=== PATIENT | male | born 1950 | race Caucasian/White ===

== ENCOUNTER 2017-02-17 14:12 | Emergency (ER) | payer MEDICARE, BC ==
[2017-02-17 16:05] VITALS: BP 134/69
--- NOTE | 2017-02-17 16:05 | UC ---
Back Pain HPI - HPI Summary HPI Summary: 66 year old male presents with left sided back pain from falling off a 6 foot ladder. He has a large left sided hematoma and I will send him to the ER. - History of Current Complaint Chief Complaint: UCTrauma Stated Complaint: BACK INJURY Time Seen by Provider: 02/17/17 16:05 - Allergies/Home Medications Allergies/Adverse Reactions: Allergies Allergy/AdvReac Type Severity Reaction Status Date / Time No Known Allergies Allergy Verified 02/17/17 16:05 Home Medications: Home Medications NK [No Home Medications Reported] 02/17/17 [History Confirmed 02/17/17] PMH/Surg Hx/FS Hx/Imm Hx Previously Healthy: Yes - Surgical History Surgical History: Yes Surgery Procedure, Year, and Place: 02/21/13 - Carpel Tunnel surgery in [place] - LEFT hand. Dr. Crockett. Will be f/u on Friday - post operative visit - Social History Alcohol Use: Occasionally Substance Use Type: None Smoking Status (MU): Never Smoked Tobacco - Immunization History Most Recent Tetanus Shot: 04/22/13 Review of Systems Constitutional: Negative Skin: Negative Eyes: Negative ENT: Negative Respiratory: Negative Cardiovascular: Negative Gastrointestinal: Negative Genitourinary: Negative Motor: Negative Neurovascular: Negative Musculoskeletal: Other: - LEFT LOWER BACK HEMATOMA SECONDARY TO FALL Neurological: Negative Psychological: Negative All Other Systems Reviewed And Are Negative: Yes Physical Exam Triage Information Reviewed: Yes Vital Signs: Initial Vital Signs Temp 37.1 C 02/17/17 16:00 Pulse 94 02/17/17 16:00 Resp 18 02/17/17 16:00 BP 134/69 02/17/17 16:00 Pulse Ox 97 02/17/17 16:00 Eye Exam: Normal ENT Exam: Normal Dental Exam: Normal Neck exam: Normal Neck: Positive: 1 Respiratory Exam: Normal Cardiovascular Exam: Normal Abdominal Exam: Normal Musculoskeletal Exam: Normal Musculoskeletal: Positive: Strength Limited @, ROM Limited @, Other: - LEFT LOWER BACK HEMATOMA SECONDARY TO FALL Neurological Exam: Normal Psychological Exam: Normal Skin Exam: Normal Back Pain Course/Dx - Differential Dx/Diagnosis Provider Diagnoses: LEFT LOWER BACK HEMATOMA SECONDARY TO A FALL Discharge - Discharge Plan Condition: Stable Disposition: HOME Patient Education Materials: Low Back Strain (ED), Acute Low Back Pain (ED) Referrals: Bennie Siddiqui MD [Primary Care Provider] - If Needed
== END 2017-02-17 16:11 | disposition left against medical advice (07) ==
LOC: UCEAST 14:12
DX: S30.0XXA Contusion of lower back and pelvis, initial encounter (principal); W11.XXXA Fall on and from ladder, initial encounter; Y93.9 Activity, unspecified; Y92.9 Unspecified place or not applicable; Y99.9 Unspecified external cause status
CPT/HCPCS: 99212; G0463

== ENCOUNTER 2017-02-17 16:34 | Emergency (ER) | payer MEDICARE, BC ==
[2017-02-17 17:35] VITALS: BP 144/89
[2017-02-17 18:21] LABS: Urine Bilirubin Negative (Negative); Urine Glucose Negative (Negative); Urine Nitrite Negative (Negative)
--- NOTE | 2017-02-17 19:04 | RAD ---
INDICATION: Fall. Back pain. COMPARISON: Lumbar spine March 09, 2007 TECHNIQUE: Noncontrast axial source images was performed from the thoracolumbar junction to the sacrum. Coronal and and sagittal reformatted images were generated. FINDINGS: Vertebrae: There is no fracture or acute focal bony lesion. Alignment: There is loss of normal lumbar lordosis. There is levoscoliosis of the lower lumbar spine. Central Canal/intervertebral disc spaces: There is degenerative disc disease with vacuum disc phenomena at T10-T11 and at T11-T12. There is mild multilevel narrowing of the disc spaces between T12 and L4. There is advanced narrowing with vacuum disc phenomena at L4-L5 and L5-S1 with endplate sclerosis and bony hypertrophy. There is facet overgrowth at the lower 2 lumbar levels. There is no acute bony change. There is no significant canal compromise or direct nerve root impingement. However, MR images a more sensitive means to evaluate the canal and exiting nerve roots. Soft tissues: The paravertebral soft tissues are normal. Other: None IMPRESSION: Multilevel degenerative disc disease. No acute findings.
== END 2017-02-17 19:39 | disposition left against medical advice (07) ==
LOC: ED 16:34
DX: Z53.21 Procedure and treatment not carried out due to patient leaving prior to being seen by health care provider (principal)
CPT/HCPCS: 72131; 81003